=== PATIENT | female | born 1980 | race Caucasian/White ===

== ENCOUNTER 2016-06-27 03:03 | Emergency (ER) | payer OTHER ==
[2016-06-27] MEDS ORDERED: methylPREDNISolone NA SUCC 125 MG/2 ML VIAL IVPB ONE (04:01)
[2016-06-27] MEDS ORDERED: morphine CARPU-JECT 2 MG/1 ML DISP.SYRIN IVPUSH ONE (04:01)
[2016-06-27] MEDS ORDERED: SODIUM CHLORIDE 1,000 ML IV STA (04:01)
[2016-06-27] MEDS ORDERED: METOCLOPRAMIDE HCL INJECTION 10 MG/2 ML VIAL IVPB ONE (04:01)
--- NOTE | 2016-06-27 04:03 | PDOC ---
History of Present Illness - General Chief Complaint: Headache Stated Complaint: SEVERE MIGRAINE Time Seen by Provider: 06/27/16 03:45 History Source: Patient, Family, Computer Service Technician Used Exam Limitations: Language Barrier - History of Present Illness Initial Comments: 06/27/16 04:26 35yo Female patient presents to ED c/o severe headache since 1 am today. Patient denies hx: migraine or headache. She denies n/v/d, fever, neck pain, CP , Abd pain, back pain, diff breathing, rash, or any other complaints at this time. Patient denies . No OTC medications use reported. Denies any other complaints at this time. Associated photophobia. Timing/Duration: reports: 4-6 hours, constant Severity: Yes: severe Associated Symptoms: denies: fever/chills, loss of consciousness, muscle spasms , nausea/vomiting, seizures, slurred speech, tingling in legs/feet, trouble walking, vision changes, weakness Past History - Travel Traveled outside of the country in the last 30 days: No Close contact w/someone who was outside of country & ill: No - Past Medical History Allergies/Adverse Reactions: Allergies Allergy/AdvReac Type Severity Reaction Status Date / Time No Known Allergies Allergy Verified 06/27/16 05:03 Home Medications: Ambulatory Orders Butalb/Acetaminophen/Caffeine [Fioricet 50-300-40 mg Capsule] 1 each PO Q4H PRN #15 capsule 06/27/16 - Surgical History Abdominal Surgery: Yes - Psycho/Social/Smoking Cessation Hx Anxiety: No Suicidal Ideation: No Smoking Status: No Smoking History: Never smoked Number of Cigarettes Smoked Daily: 0 Hx Alcohol Use: No Substance Use Type: None Neuro Specific PMHX - Complaint Specific PMHX Glaucoma: No Herniated Disk: No Laminectomy: No Migraine: No Multiple Sclerosis: No Neuropathy: No TIA: No Review of Systems - Review of Systems Able to Perform ROS?: Yes Is the patient limited Sami proficient: No Constitutional: No: Chills, Fever, Weakness HEENTM: No: Eye Pain, Blurred Vision, Double Vision, Nose Congestion, Throat Pain Respiratory: No: Cough, Shortness of Breath, Stridor, Wheezing Cardiac (ROS): No: Chest Pain, Edema, Lightheadedness, Palpitations, Chest Tightness ABD/GI: No: Constipated, Diarrhea, Nausea, Poor Appetite, Poor Fluid Intake, Vomiting : No: Dysuria, Flank Pain, Hematuria, Pain Musculoskeletal: No: Back Pain, Neck Pain Integumentary: No: Bruising, Erythema, Rash Neurological: Yes: Headache. No: Numbness, Paresthesia, Seizure, Tingling, Tremors, Weakness, Unsteady Gait, Ataxia, Dizziness Psychiatric: No: Stressors All Other Systems: Reviewed and Negative *Physical Exam - Physical Exam General Appearance: Yes: Nourished, Appropriately Dressed, Moderate Distress. No: Apparent Distress HEENT: positive: EOMI, MEENA, Normal ENT Inspection, Normal Voice, Symmetrical, TMs Normal, Pharynx Normal. negative: Rhinorrhea, Sinus Tenderness, TM Bulging , TM Dull, TM Erythema Neck: positive: Trachea midline, Supple. negative: Stridor, Lymphadenopathy (R) , Lymphadenopathy (L) Respiratory/Chest: positive: Lungs Clear, Normal Breath Sounds. negative: Respiratory Distress, Accessory Muscle Use, Labored Respiration, Rapid RR, Rhonchi, Stridor, Wheezing, Hyperresonant Cardiovascular: positive: Regular Rhythm, Regular Rate. negative: Edema, JVD, Murmur Gastrointestinal/Abdominal: positive: Normal Bowel Sounds, Soft. negative: Distended, Guarding, Rebound, Tenderness Lymphatic: negative: Adenopathy Musculoskeletal: positive: Normal Inspection. negative: CVA Tenderness Extremity: positive: Normal Capillary Refill, Normal Inspection, Normal Range of Motion. negative: Pedal Edema, Calf Tenderness, Erythema Integumentary: positive: Normal Color, Dry, Warm. negative: Pale, Cold, Clammy , Rash, Swelling, Bruising Neurologic: positive: opal polisher II-XII NML intact, Fully Oriented, Alert, Normal Mood/ Affect, Normal Response, Motor Strength 5/5. negative: Abnormal Cranial NS ED Treatment Course - LABORATORY CBC & Chemistry Diagram: 06/27/16 04:57 06/27/16 04:57 - RADIOLOGY Radiology Studies Ordered: Category Date Time Status HEAD CT WITHOUT CONTRAST [CT] Stat CT Scan 06/27/16 04:01 Ordered *DC/Admit/Observation/Transfer Diagnosis at time of Disposition: Migraine Qualifiers: Migraine type: without aura Status migrainosus presence: without status migrainosus Intractability: not intractable Qualified Code(s): G43.009 - Migraine without aura, not intractable, without status migrainosus - Discharge Dispostion Disposition: HOME Condition at time of disposition: Improved Admit: No - Prescriptions Prescriptions: Butalb/Acetaminophen/Caffeine [Fioricet 50-300-40 mg Capsule] 1 each PO Q4H PRN #15 capsule PRN Reason: Headache - Referrals Referrals: Sowmya Mccartney MD [Staff Physician] - - Patient Instructions Printed Discharge Instructions: DI for Headache, DI for Migraine Additional Instructions: Siga con el Sowmya Lee en [facility] si los s ntomas persisten. Siga con shah proveedor de atencin primaria la prxima semana para ruchi evaluacin ms detallada. [place] los medicamentos segn lo prescrito. Fioricet para el dolor de garth segn sea necesario. Descanse y tri muchos l quidos. Shah escner de kash fue normal y el trabajo de jennie dentro del rango normal. Si jesus sntomas empeoran o cualquier preocupacin, regrese para ruchi evaluacin adicional. Follow up with Sowmya Lee at [facility] if symptoms persist. Follow up with your primary care provider next week for further evaluation. Take medications as prescribed. Fioricet for headache as needed. Get plenty rest and drink lots of fluids. Your Cat Scan was normal and blood work within normal range. If your symptoms worsen or any concerns, return for further evaluation. Print Language: MEXICAN
--- NOTE | 2016-06-27 04:12 | PDOC ---
[id number]6RtINZKVCFMCJYSVM6SFWBYhTPRKw1pNWPXtIxJEQJTkM RsZQAAeJxztooJKMpPL0 jYbArrPWxuRL2TJJyPgayNwdC5CzENercoFt2eZa7HcjXP6/ KIh6CTS5aPX79SFn8HlgtBSYqRXLswFqBjZsI5RsX6SaF3QpR1DDH5YSZ5K8QKjv2ASGepXn2x0iHcSS WIJCmULMRDu7X3n7MhZETOaHhxjW1Re6cUS7zsEJR7qjSGhCH4YWEMAQTuyeuJmKUADxxSGSGSzJwaj3 uOBCEIRMvN /j4qxb9mFqNwzFmFZtwkqqXYztUwIrZC7QQfOG/lqkpiG719AaLkihwS4F5KCtezK61MlgMWFkrT/ mPLlCo5xerHLVMXshpeLInNXIpWmRo6asAwCykWCT+ I450IlCiotTpFMWJgDgX3RVb9qWhKIeumkTzwVER9vp6WBC/ pMMAJ8bY0zlIDIM4krTHigASO6rcqzKl8RNVjmlpkWKAJLWtt0l/sRXFbnzQcgwcQeRLh8+ Hjsc9msgc1PD81dpBvXoJimYLdcLJ/7slE9cLhnFFz2EoGffIcTE3KUsdi+WeRPxtlfQaqrWR+ yEPktqJnpw21ITvWe2W/64ejMDaULOjlkpJAtJ10Z4sfUrGyb+Zj/ SSiSlyygWoDfvg8h66FVVvzscLZHMMbMFPH+liMRtvchi1kTic9IhEw7+ wVNK2UOfk6SO2SJiM5b8Ja2SnRCBnEQa+t5rdj+0DqUulEf/XaOtuKfgDC9d++VxDZ7cazs+ qYrwx0r6Th+f6jxG8VC7a/0LZroJrPXI25F9qVHE2iz4QOfSqa8iUbDcP574B3bZqcJx2g6lM0sk/ znMVkUHvdzf/YUZTJSYg15E8cqG9URn8eTvYf0gLrXQiD4IsDPZZd3w1ZqIe1UfklZK+ vHU6BMpe9JXwUguqCqFPRVNU7qB9gQhw5Z6ErBTj+ XOYS1HQ2WCwt8K2LdhK2Wt1E7hQSLSNXEG6EcfMdvh== 06/27/16 04:57 Medical Decision Making - Medical Decision Making 06/27/16 04:12 agree with care from [facility] Robert *DC/Admit/Observation/Transfer Diagnosis at time of Disposition: Migraine - Discharge Dispostion Disposition: HOME Condition at time of disposition: Fair - Prescriptions Prescriptions: Butalb/Acetaminophen/Caffeine [Fioricet 50-300-40 mg Capsule] 1 each PO Q4H PRN #15 capsule PRN Reason: Headache - Referrals Referrals: Sowmya Mccartney MD [Staff Physician] - - Patient Instructions Printed Discharge Instructions: DI for Migraine, DI for Headache Additional Instructions: Siga con el Sowmya Lee en [facility] si los s ntomas persisten. Siga con shah proveedor de atencin primaria la prxima semana para ruchi evaluacin ms detallada. [place] los medicamentos segn lo prescrito. Fioricet para el dolor de garth segn sea necesario. Descanse y tri muchos l quidos. Shah escner de kash fue normal y el trabajo de jennie dentro del rango normal. Si jesus sntomas empeoran o cualquier preocupacin, regrese para ruchi evaluacin adicional. Follow up with Sowmya Lee at [facility] if symptoms persist. Follow up with your primary care provider next week for further evaluation. Take medications as prescribed. Fioricet for headache as needed. Get plenty rest and drink lots of fluids. Your Cat Scan was normal and blood work within normal range. If your symptoms worsen or any concerns, return for further evaluation. Print Language: LAO
[2016-06-27 05:03] VITALS: BP 164/78; PULSE 86; TEMP 98.5; BMI 32.3
[2016-06-27] MEDS ORDERED: methylPREDNISolone NA SUCC 125 MG/2 ML VIAL ONE (05:08)
[2016-06-27] MEDS ORDERED: morphine CARPU-JECT 2 MG/1 ML DISP.SYRIN ONE (05:08)
[2016-06-27] MEDS ORDERED: METOCLOPRAMIDE HCL INJECTION 10 MG/2 ML VIAL ONE (05:08)
[2016-06-27 05:09] LABS: EOSINOPHIL 6.8 % (0-4.5); MCH 22.4 pg (25.7-33.7); MCHC 31.6 g/dl (32.0-36.0); MEAN CELL VOLUME 70.7 fl (80-96); MEAN PLT VOLUME 9.2 fl (7.5-11.1); NEUTROPHILS 54.3 % (42.8-82.8); PLATELET COUNT 260 K/MM3 (134-434); RDW 16.1 % (11.6-15.6); WHITE BLOOD COUNT 7.3 K/mm3 (4.0-10.0)
[2016-06-27 05:41] LABS: GLUCOSE,RANDOM 131 mg/dL (74-106)
[2016-06-27 05:42] LABS: ALBUMIN 3.4 g/dl (3.4-5.0); ALK PHOS 128 U/L (45-117); ANION GAP 7 (8-16); BILIRUBIN,TOTAL 0.6 mg/dL (0.2-1.0); CALCIUM 8.6 mg/dL (8.5-10.1); CO2 28 mmol/L (21-32); CREATININE 0.8 mg/dL (0.55-1.02); SGOT/AST 12 U/L (15-37); SGPT/ALT 19 U/L (12-78); TOT PROT 7.5 g/dl (6.4-8.2)
[2016-06-27 05:52] LABS: URINE APPEARANCE CLEAR; URINE BILIRUBIN NEGATIVE (NEGATIVE); URINE COLOR STRAW; URINE GLUCOSE (UA) NEGATIVE (NEGATIVE); URINE KETONE NEGATIVE (NEGATIVE); URINE LEUK ESTERASE NEGATIVE (NEGATIVE); URINE NITRITE NEGATIVE (NEGATIVE); URINE PROTEIN NEGATIVE (NEGATIVE); URINE UROBILINOGEN NEGATIVE E.U./dl (0.2-1.0)
[2016-06-27 05:58] LABS: URINE BLOOD 2+ (NEGATIVE)
[2016-06-27 05:59] LABS: URINE MUCUS RARE; URINE RBC <1 /hpf (0-3); URINE WBC 1 /hpf (3-5)
[2016-06-27] MEDS ORDERED: MAGNESIUM SULF 50% (8.12 MEQ/2 ML-1 GM VIAL) IVPB ONE (06:06)
[2016-06-27] MEDS ORDERED: MAGNESIUM SULF 50% (8.12 MEQ/2 ML-1 GM VIAL) ONE (06:28)
== END 2016-06-27 07:19 | disposition home or self-care (01) ==
LOC: JER 03:03
PROC: 3E0333Z Introduction of Anti-inflammatory into Peripheral Vein, Percutaneous Approach (ICD-10-PCS; principal; 2016-06-27)
PROC: 3E033GC Introduction of Other Therapeutic Substance into Peripheral Vein, Percutaneous Approach (ICD-10-PCS; 2016-06-27)
DX: G43.009 Migraine without aura, not intractable, without status migrainosus (principal)
CPT/HCPCS: 36415; 70450-TC; 80053; 81003; 81015; 84703; 85025; 85651; 96374; 96375; 99283-25

== ENCOUNTER 2017-06-02 15:11 | Emergency (ER) | payer OTHER ==
--- NOTE | 2017-06-02 15:19 | PDOC ---
Rapid Medical Evaluation Time Seen by Provider: 06/02/17 15:17 Medical Evaluation: Allergies Allergy/AdvReac Type Severity Reaction Status Date / Time No Known Allergies Allergy Verified 06/02/17 15:17 06/02/17 15:18 Pt presents to the ED: dysuria and hematuria, no abd pain Pt on brief exam: vss Pt ordered for: ua, ucx, hcg Pt to proceed to the Emergency Dept Discharge Disposition - Diagnosis Dysuria - Referrals - Patient Instructions - Post Discharge Activity
[2017-06-02 15:20] VITALS: BP 137/76; PULSE 110; TEMP 98.6; BMI 32.3
[2017-06-02 16:02] LABS: URINE APPEARANCE CLOUDY; URINE BILIRUBIN NEGATIVE (NEGATIVE); URINE BLOOD 2+ (NEGATIVE); URINE COLOR YELLOW; URINE GLUCOSE (UA) NEGATIVE (NEGATIVE); URINE KETONE NEGATIVE (NEGATIVE); URINE NITRITE NEGATIVE (NEGATIVE); URINE PROTEIN NEGATIVE (NEGATIVE); URINE UROBILINOGEN NEGATIVE mg/dL (0.2-1.0)
[2017-06-02 16:04] LABS: URINE LEUK ESTERASE 3+ (NEGATIVE)
[2017-06-02 16:06] LABS: URINE MUCUS FEW; URINE RBC 54 /hpf (0-3); URINE WBC 183 /hpf (3-5)
--- NOTE | 2017-06-02 16:06 | PDOC ---
History of Present Illness - General History Source: Patient Exam Limitations: No Limitations - History of Present Illness Initial Comments: 06/02/17 16:20 The patient is a 36 year old [place] Korean-speaking female, with no significant past medical history, who presents to the emergency department with, dysuria, hematuria, and urinary frequency for two days. The patient reports when she urinating droplets. She denies recent fevers, chills, headache or dizziness. She denies recent nausea, vomit, diarrhea or constipation. She denies recent chest pain or shortness of breath. Allergies: NKA Past surgical history: None reported. Social history: Nonsmoker. Denies EtOH use and recreational drug use. <Yessy Van - Last Filed: 06/02/17 16:20> <Saloni Patel - Last Filed: 06/02/17 18:47> - General Chief Complaint: Urinary Problem Stated Complaint: URINARY PROBLEM Time Seen by Provider: 06/02/17 15:17 Past History <Yessy Van - Last Filed: 06/02/17 16:20> - Past Medical History COPD: No Diabetes: Yes (Pre diabetes) - Surgical History Abdominal Surgery: Yes - Immunization History Immunization Up to Date: No - Suicide/Smoking/Psychosocial Hx Smoking Status: No Smoking History: Never smoked Have you smoked in the past 12 months: No Number of Cigarettes Smoked Daily: 0 Information on smoking cessation initiated: No Hx Alcohol Use: No Drug/Substance Use Hx: No Substance Use Type: None <Saloni Patel - Last Filed: 06/02/17 18:47> - Past Medical History Allergies/Adverse Reactions: Allergies Allergy/AdvReac Type Severity Reaction Status Date / Time No Known Allergies Allergy Verified 06/02/17 15:17 Home Medications: Ambulatory Orders Butalb/Acetaminophen/Caffeine [Fioricet 50-300-40 mg Capsule] 1 each PO Q4H PRN #15 capsule 06/27/16 Cephalexin Monohydrate [Keflex -] 500 mg PO BID #14 capsule 06/02/17 Ibuprofen 800 mg PO TID #30 tablet 06/02/17 Review of Systems - Review of Systems Able to Perform ROS?: Yes Comments:: 06/02/17 16:21 CONSTITUTIONAL: Absent: fever, no chills, no fatigue EYES: Absent: visual changes ENT: Absent: ear pain, no sore throat CARDIOVASCULAR: Absent: chest pain, no palpitations RESPIRATORY: Absent: cough, no SOB GI: Absent: abdominal pain, no nausea, no vomiting, no constipation, no diarrhea GENITOURINARY: Present: +dysuria +frequency +hematuria MUSKULOSKELETAL: Absent: back pain, no arthralgia, no myalgia SKIN: Absent: rash NEURO: Absent: headache All Other Systems: Reviewed and Negative <Yessy aVn - Last Filed: 06/02/17 16:20> *Physical Exam - Vital Signs Last Vital Signs Temp Pulse Resp BP Pulse Ox 98.6 F 110 H 18 137/76 100 06/02/17 15:19 06/02/17 15:19 06/02/17 15:19 06/02/17 15:19 06/02/17 15:19 - Physical Exam Comments: 06/02/17 16:21 GENERAL: Well-appearing, well-nourished. No apparent distress. HEENT: Normocephalic, atraumatic. PERRL, EOM intact. CARDIOVASCULAR: Normal S1, S2. Regular rate and rhythm. PULMONARY: Clear to auscultation bilaterally. ABDOMEN: Soft, non-distended, non-tender. GENITOURINARY: No CVA tenderness. EXTREMITIES: Normal ROM in all four extremities. No gross deformities. SKIN: Warm, dry. No rash NEUROLOGICAL: No focal neurological deficits. <Yessy Van - Last Filed: 06/02/17 16:20> - Vital Signs Last Vital Signs Temp Pulse Resp BP Pulse Ox 98.6 F 110 H 18 137/76 100 06/02/17 15:19 06/02/17 15:19 06/02/17 15:19 06/02/17 15:19 06/02/17 15:19 <Saloni Patel - Last Filed: 06/02/17 18:47> ED Treatment Course - ADDITIONAL ORDERS Additional order review: Laboratory Results 06/02/17 15:55 Urine Color Yellow Urine Appearance Cloudy Urine pH 5.0 Ur Specific White 1.026 Urine Protein Negative Urine Glucose (UA) Negative Urine Ketones Negative Urine Blood 2+ H Urine Nitrite Negative Urine Bilirubin Negative Urine Urobilinogen Negative Urine WBC (Auto) 183 Urine RBC (Auto) 54 Ur Epithelial Cells Few Urine Mucus Few <Yessy Van - Last Filed: 06/02/17 16:20> - ADDITIONAL ORDERS Additional order review: Laboratory Results 06/02/17 15:55 Urine Color Yellow Urine Appearance Cloudy Urine pH 5.0 Ur Specific White 1.026 Urine Protein Negative Urine Glucose (UA) Negative Urine Ketones Negative Urine Blood 2+ H Urine Nitrite Negative Urine Bilirubin Negative Urine Urobilinogen Negative <Saloni Patel - Last Filed: 06/02/17 18:47> Medical Decision Making - Medical Decision Making 06/02/17 16:12 Pt. evaluated in E prior to arrival in the ED. UA, UC and U preg ordered. Pt. presents with two days of dysuira, hematuria and frequency. This has never happened to her before. LMP 05/17/17. VSS, Afebrile. UA with 183 WBC's. Most likely UTI. Waiting for urine for abx selection. 06/02/17 18:47 negative. Will give Keflex at this time and d/c home. Pt. understands all discharge instructions and is comfortable with dc planning. <Saloni Patel - Last Filed: 06/02/17 18:47> *DC/Admit/Observation/Transfer - Attestations Scribe Attestion: 06/02/17 16:22 Documentation prepared by Yessy Van, acting as medical asst for Alexandro Coronado MD. <Yessy Van - Last Filed: 06/02/17 16:20> - Discharge Dispostion Admit: No <Saloni Patel - Last Filed: 06/02/17 18:47> Diagnosis at time of Disposition: Dysuria UTI (urinary tract infection) Qualifiers: Urinary tract infection type: acute cystitis Hematuria presence: with hematuria Qualified Code(s): N30.01 - Acute cystitis with hematuria - Discharge Dispostion Disposition: HOME Condition at time of disposition: Stable - Prescriptions Prescriptions: Cephalexin Monohydrate [Keflex -] 500 mg PO BID #14 capsule Ibuprofen 800 mg PO TID #30 tablet - Referrals Referrals: Charli Lopez MD [Staff Physician] - - Patient Instructions Printed Discharge Instructions: DI for Urinary Tract Infection (UTI) Additional Instructions: You have a urinary tract infection. Please take the antibiotics as prescribed. Your prescribed Keflex 500 mg. Please take this twice a day for one week. Please drink plenty of fluids. May take Motrin as needed for pain. You may take 800 mg 3 times a day not to exceed 3000 mg. Please follow-up with her primary care doctor in 1 week. Return to the emergency department if you have back pain, fevers, chills, no relief of your symptoms, or any changes in her symptoms. Usted tiene ruchi infeccin del tracto urinario. Por favor tome los antibiticos segn lo prescrito. Shah Keflex 500 mg prescrito. Por favor, tome esto dos veces al da nikhil ruchi semana. Por favor tri muchos lquidos. Puede angelina Motrin segn sea necesario para el dolor. Puede angelina 800 mg 3 veces al da sin exceder 3000 mg. Por favor evan un seguimiento con shah mdico de atencin primaria en 1 semana. Regrese al departamento de emergencias si tiene dolor de espalda, fiebre, escalofros, sin alivio de jesus sntomas o cualquier cambio en jesus sntomas. Print Language: IRANIAN
[2017-06-02 18:23] LABS: URINE LEUK ESTERASE 2+ (NEGATIVE)
== END 2017-06-02 17:18 | disposition home or self-care (01) ==
LOC: JERFT 15:11
DX: N30.01 Acute cystitis with hematuria (principal); R73.03 Prediabetes
CPT/HCPCS: 81003; 81015; 84703; 87086; 99281-25

== ENCOUNTER 2017-07-18 10:41 | Emergency (ER) | payer OTHER ==
[2017-07-18 10:47] VITALS: BP 116/71; PULSE 95; TEMP 97.9; BMI 32.3
[2017-07-18 11:22] LABS: URINE APPEARANCE SLCLOUDY; URINE BILIRUBIN NEGATIVE (NEGATIVE); URINE BLOOD 3+ (NEGATIVE); URINE COLOR YELLOW; URINE GLUCOSE (UA) NEGATIVE (NEGATIVE); URINE KETONE NEGATIVE (NEGATIVE); URINE LEUK ESTERASE TRACE (NEGATIVE); URINE NITRITE NEGATIVE (NEGATIVE); URINE PROTEIN NEGATIVE (NEGATIVE); URINE UROBILINOGEN NEGATIVE mg/dL (0.2-1.0)
[2017-07-18 11:23] LABS: HCG,QUALITATIVE URINE NEGATIVE
--- NOTE | 2017-07-18 11:28 | PDOC ---
History of Present Illness - General Chief Complaint: Urinary Problem Stated Complaint: PAIN Time Seen by Provider: 07/18/17 11:18 History Source: Patient Exam Limitations: No Limitations - History of Present Illness Initial Comments: 07/18/17 11:40 Patient is a 37-year-old female who presents to the emergency department with 2 days of urinary symptoms. She states that every time she pees it hurts and she feels burning. Denies hematuria, fevers, chills, nausea, vomiting, diarrhea, back pain. Was here one month ago for similar symptoms Past History - Past Medical History Allergies/Adverse Reactions: Allergies Allergy/AdvReac Type Severity Reaction Status Date / Time No Known Allergies Allergy Verified 07/18/17 10:47 Home Medications: Ambulatory Orders Butalb/Acetaminophen/Caffeine [Fioricet 50-300-40 mg Capsule] 1 each PO Q4H PRN #15 capsule 06/27/16 Cephalexin Monohydrate [Keflex -] 500 mg PO BID #14 capsule 06/02/17 Ibuprofen 800 mg PO TID #30 tablet 06/02/17 Cephalexin Monohydrate [Keflex -] 500 mg PO BID #14 capsule 07/18/17 Phenazopyridine HCl [Pyridium -] 100 mg PO TID #21 tablet 07/18/17 COPD: No Diabetes: Yes (Pre diabetes) - Surgical History Abdominal Surgery: Yes - Immunization History Immunization Up to Date: No - Suicide/Smoking/Psychosocial Hx Smoking Status: No Smoking History: Never smoked Have you smoked in the past 12 months: No Number of Cigarettes Smoked Daily: 0 Hx Alcohol Use: No Drug/Substance Use Hx: No Substance Use Type: None Review of Systems - Review of Systems Able to Perform ROS?: Yes Comments:: 07/18/17 11:55 CONSTITUTIONAL: Absent: fever, chills, diaphoresis, generalized weakness, malaise, loss of appetite GASTROINTESTINAL: Absent: abdominal pain, abdominal distension, nausea, vomiting, diarrhea, constipation, melena, hematochezia GENITOURINARY: Present: dysuria, frequency, urgency Absent: hesitancy, hematuria, flank pain, genital pain SKIN: Absent: rash, itching, pallor NEUROLOGIC: Absent: headache, focal weakness or paresthesias, dizziness, unsteady gait, seizure, mental status changes, bladder or bowel incontinence Is the patient limited Botswanan proficient: No *Physical Exam - Vital Signs Last Vital Signs Temp Pulse Resp BP Pulse Ox 97.9 F 95 H 18 116/71 99 07/18/17 10:43 07/18/17 10:43 07/18/17 10:43 07/18/17 10:43 07/18/17 10:43 - Physical Exam Comments: 07/18/17 11:54 GENERAL: The patient is awake, alert, and fully oriented, in no acute distress. HEAD: Normal with no signs of trauma. EYES: Pupils equal, round and reactive to light, extraocular movements intact, sclera anicteric, conjunctiva clear. ABDOMEN: Soft, flat, non-tender without rebound, guarding or tenderness. No CVA tenderness. EXTREMITIES: Normal range of motion, no edema. NEUROLOGICAL: Normal speech, normal gait. PSYCH: Normal mood, normal affect. SKIN: Warm, Dry, normal turgor, no rashes or lesions noted. ED Treatment Course - ADDITIONAL ORDERS Additional order review: Laboratory Results 07/18/17 11:07 Urine Color Yellow Urine Appearance Slcloudy Urine pH 5.0 Ur Specific [place] 1.021 Urine Protein Negative Urine Glucose (UA) Negative Urine Ketones Negative Urine Blood 3+ H Urine Nitrite Negative Urine Bilirubin Negative Urine Urobilinogen Negative Ur Leukocyte Esterase Trace Urine HCG, Qual Negative Medical Decision Making - Medical Decision Making 07/18/17 11:53 The UA is positive for trace leukocytes and blood cells. 3+ blood however patient is on her menstrual cycle. No CVA tenderness on exam patient is afebrile vital signs stable most likely UTI. We'll discharge home with Keflex and Pyridium at this time. Return precautions given. Patient understands all discharge instructions and all questions are answered at this time. *DC/Admit/Observation/Transfer Diagnosis at time of Disposition: UTI (urinary tract infection) Qualifiers: Urinary tract infection type: acute cystitis Hematuria presence: with hematuria Qualified Code(s): N30.01 - Acute cystitis with hematuria - Discharge Dispostion Disposition: HOME Condition at time of disposition: Stable Admit: No - Prescriptions Prescriptions: Cephalexin Monohydrate [Keflex -] 500 mg PO BID #14 capsule Phenazopyridine HCl [Pyridium -] 100 mg PO TID #21 tablet - Referrals Referrals: Ethan Pickett MD [Primary Care Provider] - - Patient Instructions Printed Discharge Instructions: DI for Urinary Tract Infection (UTI) Additional Instructions: You have a urinary tract infection. Please take the antibiotics as prescribed. Your also prescribed Pyridium. Please take this medication with food 3 times a day to help with the burning sensation. Please drink plenty of fluids including cranberry juice. Please follow up with her primary care doctor this week. Return to the emergency department if you develop fevers, back pain, nausea, vomiting or have any changes in your symptoms. Usted tiene ruchi infeccin del tracto urinario. Por favor tome los antibiticos segn lo prescrito. Shah Pyridium prescrito tambin. Por favor tome janeth medicamento con comida 3 veces al da para ayudar con la sensacin de ardor. Por favor, tome muchos lquidos, incluido el jugo de arndano. Por favor, evan un seguimiento con shah mdico de atencin primaria esta semana. Regrese al departamento de emergencia si tiene fiebre, dolor de espalda, nuseas , vmitos o algn cambio en jesus sntomas. Print Language: TRISTANIAN - Post Discharge Activity
[2017-07-18 11:36] LABS: EPI CELLS RARE /HPF (FEW); URINE HYALINE CAST 9 /lpf; URINE MUCUS MANY
== END 2017-07-18 12:06 | disposition home or self-care (01) ==
LOC: JERFT 10:41
DX: N30.01 Acute cystitis with hematuria (principal); R73.03 Prediabetes
CPT/HCPCS: 81003; 81015; 84703; 87086; 99281-25

== ENCOUNTER 2018-04-21 09:37 | Emergency (ER) | payer OTHER ==
[2018-04-21 09:48] VITALS: BP 127/82; PULSE 91; TEMP 98.4; BMI 30.7
--- NOTE | 2018-04-21 11:15 | PDOC ---
History of Present Illness - General Chief Complaint: Urinary Problem Stated Complaint: URINARY PROBLEM Time Seen by Provider: 04/21/18 09:59 History Source: Patient Exam Limitations: Language Barrier ([employer] used German [id number]) - History of Present Illness Initial Comments: 04/21/18 12:04 Pt is a 37 y/o F who presents to the ED for 3 days of dysuria, frequency, and hematuria. She states that when she pees, only a little comes out and it hurts. When she wipes she sees blood. Pt denies fevers, chills, back pain, nausea, vomiting and diarrhea. Past History - Travel Traveled outside of the country in the last 30 days: No Close contact w/someone who was outside of country & ill: No - Past Medical History Allergies/Adverse Reactions: Allergies Allergy/AdvReac Type Severity Reaction Status Date / Time No Known Allergies Allergy Verified 04/21/18 09:43 Home Medications: Ambulatory Orders Cephalexin Monohydrate [Keflex -] 500 mg PO BID #14 capsule 04/21/18 Phenazopyridine HCl [Pyridium -] 100 mg PO TID #9 tablet 04/21/18 COPD: No Diabetes: Yes (Pre diabetes) - Surgical History Abdominal Surgery: Yes - Immunization History Immunization Up to Date: No - Suicide/Smoking/Psychosocial Hx Smoking Status: No Smoking History: Never smoked Have you smoked in the past 12 months: No Number of Cigarettes Smoked Daily: 0 Information on smoking cessation initiated: No Hx Alcohol Use: No Drug/Substance Use Hx: No Substance Use Type: None Review of Systems - Review of Systems Able to Perform ROS?: Yes Comments:: 04/21/18 11:14 CONSTITUTIONAL: Absent: fever, chills, diaphoresis, generalized weakness, malaise, loss of appetite GASTROINTESTINAL: Absent: abdominal pain, abdominal distension, nausea, vomiting, diarrhea, constipation, melena, hematochezia GENITOURINARY: Present: dysuria, frequency, urgency, hesitancy, hematuria Absent: flank pain, genital pain MUSCULOSKELETAL: Absent: myalgia, arthralgia, joint swelling SKIN: Absent: rash, itching, pallor NEUROLOGIC: Absent: headache, focal weakness or paresthesias, dizziness, unsteady gait, seizure, mental status changes, bladder or bowel incontinence PSYCHIATRIC: Absent: anxiety, depression, suicidal or homicidal ideation, hallucinations. Is the patient limited Ghanaian proficient: Yes *Physical Exam - Vital Signs Last Vital Signs Temp Pulse Resp BP Pulse Ox 98.4 F 91 H 18 127/82 99 04/21/18 09:43 04/21/18 09:43 04/21/18 09:43 04/21/18 09:43 04/21/18 09:43 - Physical Exam Comments: 04/21/18 11:14 GENERAL: Well developed, well nourished. Awake and alert. No acute distress. NECK: Supple. Full ROM. No JVD. Carotid pulses 2+ and symmetric, without bruits. No thyromegaly. No lymphadenopathy. ABDOMINAL: Discomfort to the suprapubic region. Soft. Non-tender. Non-distended. No rebound or guarding. No organomegaly. Normoactive bowel sounds. MUSCULOSKELETAL Normal range of motion at all joints. No bony deformities or tenderness. No CVA tenderness. EXTREMITIES: No cyanosis. No clubbing. No edema. No calf tenderness. SKIN: Warm and dry. Normal capillary refill. No rashes. No jaundice. NEUROLOGICAL: Alert, awake, appropriate. Cranial nerves 2-12 intact. No deficits to light touch and temperature in face, upper extremities and lower extremities. No motor deficits in the in face, upper extremities and lower extremities. Normoreflexic in the upper and lower extremities. Normal speech. Toes are down- going bilaterally. Gait is normal without ataxia. PSYCHIATRIC: Cooperative. Good eye contact. Appropriate mood and affect. Medical Decision Making - Medical Decision Making 04/21/18 12:24 Pt is a 37 y/o F who presents to the ED for dysuria for 3 days -On exam suprapubic discomfort. No CVA tenderness, pt afebrile -UA with WBC's >1000. Will treat for UTI at this time -DC home with PCP follow up -Return precautions given. Discussed results with patient. Pt understands all dc instructions and all questions were answered. *DC/Admit/Observation/Transfer Diagnosis at time of Disposition: UTI (urinary tract infection) Qualifiers: Urinary tract infection type: acute cystitis Hematuria presence: with hematuria Qualified Code(s): N30.01 - Acute cystitis with hematuria - Discharge Dispostion Disposition: HOME Condition at time of disposition: Stable Decision to Admit order: No - Referrals Referrals: Charli Lopez MD [Staff Physician] - - Patient Instructions Printed Discharge Instructions: DI for Urinary Tract Infection (UTI) Additional Instructions: You have a urinary tract infection Please take the Keflex twice a day for one week Drink plenty of fluids Take the pyridium with food three times a day for three days to help with the pain. This medicine may turn your urine orange. You may take Tylenol or Motrin as needed for pain. Follow the dosing instruction on the bottle Follow up with your primary care provider in 24-72 hours. Return to the ED for worsening pain, fever, upper back pain, nausea, vomiting or if you have any changes in your symptoms Tiene ruchi infeccin del tracto urinario. Por favor, tome el Keflex dos veces al da nikhil ruchi semana Beber mucho lquido [place] el piridium con comida moe veces al da nikhil moe scales para aliviar el dolor. Dora medicamento puede convertir caldwell orina en naranja. Puede angelina Tylenol o Motrin segn sea necesario para el dolor. Seguir las instrucciones de dosificacin en la botella. Rakel un seguimiento con caldwell proveedor de atencin primaria en 24-72 horas. Regrese a la lauri de emergencias para empeorar el dolor, la fiebre, el dolor en la parte superior de la espalda, las nuseas, los vmitos o si tiene algn cambio en jesus sntomas. Print Language: KOREAN - Post Discharge Activity Forms/Work/School Notes: Back to Work
[2018-04-21 11:34] LABS: HCG,QUALITATIVE URINE Negative
[2018-04-21 12:19] LABS: URINE APPEARANCE CLOUDY; URINE BILIRUBIN NEGATIVE (<2.0 mg/dL); URINE COLOR YELLOW; URINE GLUCOSE (UA) NEGATIVE (NEGATIVE); URINE KETONE NEGATIVE (NEGATIVE); URINE LEUK ESTERASE 3+ (NEGATIVE); URINE NITRITE NEGATIVE (NEGATIVE); URINE PROTEIN 1+ (NEGATIVE); URINE UROBILINOGEN NEGATIVE mg/dL (0.2-1.0)
[2018-04-21 12:21] LABS: EPI CELLS RARE /HPF (FEW); URINE MUCUS RARE
== END 2018-04-21 12:37 | disposition home or self-care (01) ==
LOC: JERFT 09:37
DX: N30.01 Acute cystitis with hematuria (principal); R73.03 Prediabetes
CPT/HCPCS: 81003; 81015; 84703; 87086; 87186; 99281-25

== ENCOUNTER 2019-07-13 09:15 | Emergency (ER) | payer OTHER ==
[2019-07-13 09:27] VITALS: BMI 76.8
[2019-07-13] MEDS ORDERED: SODIUM CHLORIDE 1,000 ML IV STA (09:47)
--- NOTE | 2019-07-13 09:54 | PDOC ---
Documentation entered by Scooby Nesbitt SCRIBE, acting as scribe for Osmnai Brewster MD. Osmani Brewster MD: This documentation has been prepared by the Laz linn Xhesika, SCRIBE, under my direction and personally reviewed by me in its entirety. I confirm that the documentation accurately reflects all work, treatment, procedures, and medical decision making performed by me. History of Present Illness - General Chief Complaint: Lightheaded Stated Complaint: COLD SYMPTOMS Time Seen by Provider: 07/13/19 09:37 History Source: Patient Exam Limitations: No Limitations - History of Present Illness Initial Comments: 07/13/19 09:48 The patient is a 39 year old male with a significant PMH of diabetes who presents to the emergency department for lightheadedness and palpitations since this morning. Pt states that she awoke with a pounding sensation in her chest. The patient denies any headache or room spinning dizziness. Denies chest pain, shortness of breath, fever, chills, cough, nausea, vomiting, diarrhea. Denies leg swelling, no recent travel/immobilization. Allergies: NKDA Past History - Past Medical History Allergies/Adverse Reactions: Allergies Allergy/AdvReac Type Severity Reaction Status Date / Time No Known Allergies Allergy Verified 04/21/18 09:43 Home Medications: Ambulatory Orders Metformin HCl [Glucophage] 1,000 mg PO BID 07/13/19 COPD: No Diabetes: Yes (Pre diabetes) - Surgical History Abdominal Surgery: Yes - Immunization History Immunization Up to Date: No - Psycho Social/Smoking Cessation Hx Smoking Status: No Smoking History: Never smoked Have you smoked in the past 12 months: No Number of Cigarettes Smoked Daily: 0 Hx Alcohol Use: No Drug/Substance Use Hx: No Substance Use Type: None Review of Systems - Review of Systems Able to Perform ROS?: Yes Comments:: 07/13/19 09:48 GENERAL/CONSTITUTIONAL: No fever or chills. No weakness. HEAD, EYES, EARS, NOSE AND THROAT: No change in vision. No ear pain or discharge. No sore throat. CARDIOVASCULAR: +palpitations. No chest pain, no shortness of breath, no loss of consciousness RESPIRATORY: No cough, wheezing, or hemoptysis. GASTROINTESTINAL: No nausea, vomiting, diarrhea or constipation. GENITOURINARY: No dysuria, frequency, or change in urination. MUSCULOSKELETAL: No joint or muscle swelling or pain. No neck or back pain. SKIN: No rash NEUROLOGIC: +lightheadedness. No vertigo, no change in strength/sensation. ENDOCRINE: No increased thirst. No abnormal weight change. HEMATOLOGIC/LYMPHATIC: No anemia, easy bleeding, or history of blood clots. ALLERGIC/IMMUNOLOGIC: No hives or skin allergy. *Physical Exam - Vital Signs Last Vital Signs Temp Pulse Resp BP Pulse Ox 98.2 F 99 H 18 139/91 99 07/13/19 09:20 07/13/19 09:20 07/13/19 09:20 07/13/19 09:20 07/13/19 09:20 - Physical Exam 07/13/19 09:49 GENERAL: Awake, alert, and fully oriented, in no acute distress. HEAD: No signs of trauma EYES: PERRLA, EOMI, sclera anicteric, conjunctiva clear ENT: Auricles normal inspection, hearing grossly normal, nares patent, oropharynx clear without exudates. Moist mucosa NECK: Nontender, no stepoffs, Normal ROM, supple, no lymphadenopathy, JVD, or masses LUNGS: Breath sounds equal, clear to auscultation bilaterally. No wheezes, and no crackles HEART: Regular rate and rhythm, normal S1 and S2, no murmurs, rubs or gallops ABDOMEN: Soft, nontender, normoactive bowel sounds. No guarding, no rebound. No masses EXTREMITIES: Normal range of motion, no edema. No clubbing or cyanosis. No cords, erythema, or tenderness NEUROLOGICAL: Cranial nerves II through XII intact. 5/5 strength and sensation in all extremities, Normal speech, normal gait, normal cerebellar function SKIN: Warm, Dry, normal turgor, no rashes or lesions note Heart Score/ECG Review - ECG Impressions Comment:: 07/13/19 09:53 NSR, no ELIZABETH/STDs, no TWIs, axis wnl, intervals wnl, rate 90 ED Treatment Course - LABORATORY CBC & Chemistry Diagram: 07/13/19 09:45 07/13/19 09:45 - RADIOLOGY Radiology Studies Ordered: Category Date Time Status CHEST PA & LAT [RAD] Stat Radiology 07/13/19 09:47 Ordered Medical Decision Making - Medical Decision Making 07/13/19 09:53 39 F with palpitations and lightheadedness. EKG with no evidence of ischemia or arrhythmia. Will r/o ACS with troponin, though pt denies any chest pain. Consider dehydration, possible viral illness or other infectious process. - Labs, trop - CXR, UA - IVF bolus 07/13/19 11:04 Labs wnl CXR unremarkable Pt reassessed - now feels completely better with fluids Pt is well appearing, with normal vitals. Clinically stable for DC at this time. I discussed the physical exam findings, ancillary test results and final diagnoses with the patient. I answered all of the patient's questions. The patient was satisfied with the care received and felt comfortable with the discharge plan and treatment plan. The patient agrees to follow up with the primary care physician within 24-72 hours. Discharge - Discharge Information Problems reviewed: Yes Clinical Impression/Diagnosis: Lightheaded, Palpitations - Follow up/Referral Referrals: Shiraz Preston MD [Primary Care Provider] - Wyatt Knox MD [Staff Physician] - - Patient Discharge Instructions Patient Printed Discharge Instructions: DI for Palpitations Additional Instructions: Your bloodwork, EKG, and X ray were unremarkable. However, this does not rule out all serious medical problems. You should follow up with a electrical integrator for further evaluation of your palpitations. Call the number provided to make an appointment within 1 week. If you experience worsening palpitations, lightheadedness, chest pain, shortness of breath, or any other concerning symptoms, return to the ER immediately. Shah anlisis de jennie, EKG y rena X no fueron notables. Sin embargo, esto no descarta todos los problemas mdicos graves. Debe realizar un seguimiento con un cardilogo para ruchi evaluacin adicional de jesus palpitaciones. Llame al nmero proporcionado para hacer ruchi manohar dentro de 1 semana. Si experimenta un empeoramiento de las palpitaciones, aturdimiento, dolor en el pecho, dificultad para respirar o cualquier otro sntoma preocupante, regrese a la lauri de emergencias de inmediato. - Post Discharge Activity
[2019-07-13 10:22] LABS: BASO % 0.5 % (0-2.0); EOS % 6.2 % (0-4.5); HEMATOCRIT 35.4 % (32.4-45.2); HEMOGLOBIN 11.2 GM/dL (10.7-15.3); LYMPH % 28.8 % (8-40); MCH 23.1 pg (25.7-33.7); MCHC 31.7 g/dl (32.0-36.0); MEAN CELL VOLUME 72.9 fl (80-96); MEAN PLT VOLUME 9.2 fl (7.5-11.1); MONO % 5.8 % (3.8-10.2); NEUT % 58.7 % (42.8-82.8); PLATELET COUNT 241 K/MM3 (134-434); RBC 4.86 M/mm3 (3.60-5.2); RDW 20.7 % (11.6-15.6)
[2019-07-13 10:59] LABS: ALBUMIN 3.2 g/dl (3.4-5.0); ALK PHOS 129 U/L (45-117); ANION GAP 4 MMOL/L (8-16); BILIRUBIN,TOTAL 0.4 mg/dL (0.2-1); BLOOD UREA NITROGEN 8.9 mg/dL (7-18); CALCIUM 8.5 mg/dL (8.5-10.1); CHLORIDE 105 mmol/L (98-107); CO2 27 mmol/L (21-32); CREATININE 0.7 mg/dL (0.55-1.3); GLUCOSE,RANDOM 161 mg/dL (74-106); POTASSIUM 4.4 mmol/L (3.5-5.1); SGOT/AST 16 U/L (15-37); SGPT/ALT 22 U/L (13-61); SODIUM 136 mmol/L (136-145); TOT PROT 7.5 g/dl (6.4-8.2)
[2019-07-13 11:01] LABS: URINE APPEARANCE CLEAR; URINE BILIRUBIN NEGATIVE (NEGATIVE); URINE COLOR YELLOW; URINE GLUCOSE (UA) NEGATIVE (NEGATIVE); URINE KETONE NEGATIVE (NEGATIVE); URINE LEUK ESTERASE NEGATIVE (NEGATIVE); URINE NITRITE NEGATIVE (NEGATIVE); URINE PROTEIN NEGATIVE (NEGATIVE); URINE UROBILINOGEN 0.2 mg/dL (0.2-1.0)
[2019-07-13 11:03] LABS: ANISOCYTOSIS 1+
[2019-07-13 12:20] VITALS: BP 111/72; PULSE 89; TEMP 98
--- NOTE | 2019-07-13 13:54 | EKG ---
Test Reason : Blood Pressure : / mmHG Vent. Rate : 090 BPM Atrial Rate : 090 BPM P-R Int : 150 ms QRS Dur : 084 ms QT Int : 340 ms P-R-T Axes : 031 042 041 degrees QTc Int : 415 ms NORMAL SINUS RHYTHM NORMAL ECG NO PREVIOUS ECGS AVAILABLE Confirmed by Ambrose Bunn ([id number]) on 07/13/2019 1:54:12 PM Referred By: Confirmed By:Ambrose Bunn
== END 2019-07-13 11:25 | disposition home or self-care (01) ==
LOC: JER 09:15
PROC: 3E0337Z Introduction of Electrolytic and Water Balance Substance into Peripheral Vein, Percutaneous Approach (ICD-10-PCS; principal; 2019-07-13)
DX: R42 Dizziness and giddiness (principal); R00.2 Palpitations; E11.9 Type 2 diabetes mellitus without complications
CPT/HCPCS: 36415; 71046-TC-FY; 80053; 81003; 82550; 84484; 84703; 85025; 93005; 93010; 99284-25; J7030

== ENCOUNTER 2020-01-16 09:37 | Emergency (ER) | payer OTHER ==
[2020-01-16 09:46] VITALS: TEMP 98.4; BMI 33.9
[2020-01-16] MEDS ORDERED: SODIUM CHLORIDE 1,000 ML IV STA (10:59)
--- NOTE | 2020-01-16 11:34 | PDOC ---
History of Present Illness - General Chief Complaint: Bleeding from Anus Stated Complaint: RECTAL BLEEDING Time Seen by Provider: 01/16/20 10:08 History Source: Patient Exam Limitations: No Limitations - History of Present Illness Initial Comments: Betty is a 39 yo Botswanan-speaking F w a hx of NIDDM and hemorrhoids who presents to the [facility] er with 1 day of rectal bleeding. She looked down at the toilet and noticed some red discoloration of the toilet bowl water. She came into the ER bc she was concerned about the blood from her rectum. She states that she has a history of hemorrhoids. Patient also endorses lower abdominal pain mainly on the left but also in the suprapubic and RLQ regions. Patient rates the pain as 3/1 and the symptoms or moderate and come and go. - Last colonoscopy on July 2018 PCP: Dr. Preston GI: Patient doesn't know name but has seen Dr. Rick in past per EMR PSH: , Tubal ligation Allerigies: NKA, NKDA Social Hx: Denies smoking, drinking or other substance abuse Past History - Medical History Allergies/Adverse Reactions: Allergies Allergy/AdvReac Type Severity Reaction Status Date / Time No Known Allergies Allergy Verified 04/21/18 09:43 Home Medications: Ambulatory Orders Metformin HCl [Glucophage] 1,000 mg PO BID 07/13/19 Amoxicillin/Potassium Clav [Augmentin 875-125 Tablet] 1 each PO TID 5 Days #15 tablet 01/16/20 COPD: No Diabetes: Yes HTN: Yes - Surgical History Abdominal Surgery: Yes - Reproductive History Is Patient Now?: No - Immunization History Immunization Up to Date: No - Psycho-Social/Smoking History Smoking Status: No Smoking History: Never smoked Have you smoked in the past 12 months: No Number of Cigarettes Smoked Daily: 0 - Substance Abuse Hx (Audit-C & DAST Scrn) How often the patient has a drink containing alcohol: Never Score: In Men: 4 or > Positive; In Women: 3 or > Positive: 0 Screen Result (Pos requires Nsg. Audit-10AR): Negative In the last yr the pt used illegal drug/Rx for NonMed reason: No Score: Yes response is considered Positive: 0 Screen Result (Positive result requires Nsg. DAST-10): Negative Review of Systems - Review of Systems Able to Perform ROS?: Yes Comments:: CONSTITUTIONAL: Absent: fever, no chills, no fatigue EYES: Absent: visual changes ENT: Absent: ear pain, no sore throat CARDIOVASCULAR: Absent: chest pain, no palpitations RESPIRATORY: Absent: cough, no SOB GI: Present: Abdominal pain, constipation Absent: no nausea, no vomiting, no diarrhea GENITOURINARY: Absent: dysuria, no frequency, no hematuria MUSKULOSKELETAL: Absent: back pain, no arthralgia, no myalgia SKIN: Absent: rash NEURO: Absent: headache *Physical Exam - Vital Signs Last Vital Signs Temp Pulse Resp BP Pulse Ox 98.4 F 90 20 131/54 L 100 01/16/20 09:41 01/16/20 09:41 01/16/20 09:41 01/16/20 09:41 01/16/20 09:41 - Physical Exam GENERAL: Well-appearing, well-nourished. No apparent distress. HEENT: Normocephalic, atraumatic. PERRL, EOM intact. CARDIOVASCULAR: Normal S1, S2. Regular rate and rhythm. PULMONARY: No evidence of respiratory distress. Lungs clear to auscultation bilaterally. No wheezing, rales or rhonchi. ABDOMEN: There is mild suprapubic TTP as well as right and left lower quadrant ttp. Overall, abdomen is soft, normal bowel sounds and not peritoneal without re bound, guarding or rigidity. RECTAL EXAM: Soft brown stool, no blood in vault, two small external hemorrhoids at the 9 and 11 position not thrombosed, no internal hemorroids. EXTREMITIES: Normal ROM in all four extremities. No gross deformities. SKIN: Warm, dry. No rash NEUROLOGICAL: No focal neurological deficits. ED Treatment Course - LABORATORY CBC & Chemistry Diagram: 01/16/20 11:15 01/16/20 11:15 - ADDITIONAL ORDERS Additional order review: Laboratory Results 01/16/20 10:24 Stool Occult Blood Negative - RADIOLOGY Radiology Studies Ordered: Category Date Time Status ABDOMEN & PELVIS CT WITH CONTR [CT] Stat CT Scan 01/16/20 11:30 Ordered Medical Decision Making - Medical Decision Making Betty is a 39 yo Botswanan-speaking F w a hx of NIDDM and hemorrhoids who presents to the [facility] er with 1 day of rectal bleeding. She looked down at the toilet and noticed some red discoloration of the toilet bowl water. She came into the ER bc she was concerned about the blood from her rectum. She states that she has a history of hemorrhoids. Patient also endorses lower abdominal pain mainly on the left but also in the suprapubic and RLQ regions. Patient rates the pain as 3/1 and the symptoms or moderate and come and go. - Last colonoscopy on July 2018 Vital Signs Temp Pulse Resp BP Pulse Ox 98.4 F 90 20 131/54 L 100 01/16/20 09:41 01/16/20 09:41 01/16/20 09:41 01/16/20 09:41 01/16/20 09:41 DDx IBNLT: Hemorrhoidal bleeding, diverticulitis, electrolyte/metabolic disturbance, anemia, UTI/Pylo Plan: Labs, Urine, CTAP, analegsia, likely DC as patient is very well appearing. MDM: Patient very well appearing but does have abdominal pain, rectal bleeding per history. Will obtain a CT to r/o diverticulitis. If labs and imaging negative she can be discharged home with appropriate FU and return precautions. Labs: Unremarkable and WNL - Stool for occult negative Urine: not consistent with UTI given clinical history CTAP: Mild colitis will treat with 5 day course of augmentin Re-assessment: Patient feeling better in ED and requesting to be discharged The patient appears clinically sober, has no evidence of clinical intoxication, is A&O x4, has no sustained nystagmus, and appears to be capable and have capacity to make reasonable decisions. The patient states they are currently in the emergency department, knows who the president is, states the correct time, correct day, and correct month. The patient is ambulatory in ER and has walked around the nursing station multiple times with a straight and steady gait, and is not ataxic. Tolerating PO well, ate a sandwich and drank juice. Denies having any SI or HI. Patient states will not be driving home. I discussed the physical exam findings, ancillary test results and final diagnoses with the patient. I answered all of the patient's questions. The patient was satisfied with the care received and felt comfortable with the discharge plan and treatment plan. The patient will call their primary care physician within 24 hours to arrange follow-up and will return to the Emergency Department with any new, persistent or worsening symptoms. Disposition: Home with Gi follow up and Abx - Strict return precautions discussed Please note, this clinical encounter is taking place during a federal and state health care emergency attributable to the novel Nielson Virus pandemic. The [employer] Worker of the Department of Health and Human Services has declared, pursuant to the Public Health Service Act 319F-3 (42 U.S.C. 247d-6d), that a covered persons activities related to medical countermeasures against COVID-19 will be immune from liability under Federal and State law. Discharge - Discharge Information Problems reviewed: Yes Clinical Impression/Diagnosis: Colitis Condition: Improved Disposition: HOME - Admission No - Additional Discharge Information Prescriptions: Amoxicillin/Potassium Clav [Augmentin 875-125 Tablet] 1 each PO TID 5 Days #15 tablet - Follow up/Referral Referrals: Shiraz Preston MD [Primary Care Provider] - Tono Mondragon DO [Staff Physician] - Arvin Rick MD [Staff Physician] - Denise Monet MD [Staff Physician] - - Patient Discharge Instructions Patient Printed Discharge Instructions: DI for Colitis Additional Instructions: You came into the ER with abdominal pain. We did a cat scan which showed you have a mild inflammation and infection in your colon called colitis. Please read the attached handout for further explanation. We are sending an antibiotic to your pharmacy - augmentin - for you to take 3 times a day for the next 5 days. Make sure to go and vegetable picker this medication from the pharmacy. You must follow up with the stomach doctor - cushion maker hand - in the next 3 to 5 days. You must return to the Emergency Department with any new complaints, if your symptoms persist and do not improve or if you develop any other new or worsening concerns. You can take over the counter Tylenol or Advil as needed for pain. Take as directed on the package insert. Do not exceed the recommended dosage. As discussed, please call to follow up with your Primary Care physician in 1-2 days to discuss what happened to you in the emergency room, and make sure you are being looked after and taken care of. Your emergency room visit is not complete without this follow up appointment. Please read the attached handouts for further information about your ER visit and what you should do moving forward. Thank you for coming to the [place] ER. We hope you feel better soon! Print Language: HUNGARIAN - Post Discharge Activity
[2020-01-16 11:41] LABS: BASO % 0.6 % (0-2.0); EOS % 5.3 % (0-4.5); HEMATOCRIT 41.3 % (32.4-45.2); HEMOGLOBIN 12.9 GM/dL (10.7-15.3); LYMPH % 25.9 % (8-40); MCH 23.7 pg (25.7-33.7); MCHC 31.2 g/dl (32.0-36.0); MEAN CELL VOLUME 76.2 fl (80-96); MEAN PLT VOLUME 9.7 fl (7.5-11.1); MONO % 5.5 % (3.8-10.2); NEUT % 62.7 % (42.8-82.8); PLATELET COUNT 272 K/MM3 (134-434); RBC 5.42 M/mm3 (3.60-5.2); RDW 15.5 % (11.6-15.6); WHITE BLOOD COUNT 7.9 K/mm3 (4.0-10.0)
[2020-01-16 12:01] LABS: INR 1.05 (0.83-1.09); PROTHROMBIN TIME (PATIENT) 12.4 SEC (9.7-13.0)
--- NOTE | 2020-01-16 12:01 | PDOC ---
Documentation entered by Aury Woodward SCRIBE, acting as scribe for Frantz Chang MD. Frantz Chang MD: This documentation has been prepared by the Crissy linn Brenda, SCRIBE, under my direction and personally reviewed by me in its entirety. I confirm that the documentation accurately reflects all work, treatment, procedures, and medical decision making performed by me. Attending Attestation - Resident Resident Name: Leonidas Saravia - ED Attending Attestation I have performed the following: I have examined & evaluated the patient, The case was reviewed & discussed with the resident, I agree w/resident's findings & plan, Exceptions are as noted - HPI HPI: 01/16/20 10:25 The patient is a 39 year old female with a significant PMH of Pre-DM who presents to the emergency department with 3 episodes of bright red blood per rectum. Associated bowel movements. Associated with mild lower abdominal discomfort. No fever no nausea no vomiting stool is firm hard and brown. No history of similar. Does not occur in the absence of bowel movements. The patient denies chest pain, shortness of breath, headache and dizziness. Denies fever, chills, nausea, vomiting, diarrhea and constipation. Denies dysuria, frequency, urgency and hematuria. Allergies: NKA Past surgical history: Social history: No reported hx of tobacco use, alcohol use or illicit drug use. PCP: Shiraz Preston 01/16/20 12:07 - Physicial Exam PE: 01/16/20 13:46 Vitals: Triage Vital signs reviewed General Appearance: No acute distress, well nourished well developed, Head: Atraumatic, Cardiac: Regular rate and rhythym, no murmurs, no rubs, no gallops, Lungs: Clear to auscultation bilateral, good air movement bilaterally, Abdomen: Soft, non distended, normal bowel sounds, non tender to palpation Extremities: Full range of motion to all extremities, no cyanosis, clubbing, or edema Skin: Warm and dry, no rashes or lesions, no rash, no petechiae Psych: Normal mood, normal affect - Medical Decision Making 01/16/20 15:15 Small amount of bright red blood per rectum CBC within normal limits slight abdominal discomfort CT with evidence suggestive of colitis We will treat with 5-day course of Augmentin followed by GI follow-up Findings, need for follow-up with strict return instructions discussed with patient. Discharge - Discharge Information Problems reviewed: Yes Clinical Impression/Diagnosis: Colitis Disposition: HOME - Additional Discharge Information Prescriptions: Amoxicillin/Potassium Clav [Augmentin 875-125 Tablet] 1 each PO TID 5 Days #15 tablet - Follow up/Referral Referrals: Shiraz Preston MD [Primary Care Provider] - - Patient Discharge Instructions - Post Discharge Activity
[2020-01-16 12:03] LABS: ACTIVATED PTT 28.6 SECONDS (25.2-36.5)
[2020-01-16 12:32] LABS: ALBUMIN 3.4 g/dl (3.4-5.0); BILIRUBIN,TOTAL 0.5 mg/dL (0.2-1); BLOOD UREA NITROGEN 11.5 mg/dL (7-18); CREATININE 0.7 mg/dL (0.55-1.3); POTASSIUM 4.5 mmol/L (3.5-5.1); TOT PROT 7.8 g/dl (6.4-8.2)
[2020-01-16] MEDS ORDERED: ACETAMINOPHEN 1000 MG/100 ML VIAL (NON FORMULARY) IVPB ONE (13:01)
[2020-01-16 13:53] LABS: EPI CELLS 9 /uL (0-25.1); HYALINE CASTS 0 /uL (0-3.1); URINE APPEARANCE CLEAR; URINE BACTERIA 346 /uL (0-1359); URINE BILIRUBIN NEGATIVE (NEGATIVE); URINE COLOR YELLOW; URINE GLUCOSE (UA) NEGATIVE (NEGATIVE); URINE KETONE NEGATIVE (NEGATIVE); URINE LEUK ESTERASE TRACE (NEGATIVE); URINE NITRITE NEGATIVE (NEGATIVE); URINE PROTEIN NEGATIVE (NEGATIVE); URINE RBC 6 /uL (0-23.9); URINE UROBILINOGEN 0.2 mg/dL (0.2-1.0); URINE WBC 24 /uL (0-25.8)
[2020-01-16 15:42] VITALS: BP 132/92; PULSE 76
== END 2020-01-16 15:43 | disposition home or self-care (01) ==
LOC: JER 09:37
PROC: 3E0333Z Introduction of Anti-inflammatory into Peripheral Vein, Percutaneous Approach (ICD-10-PCS; principal; 2020-01-16)
PROC: 3E0337Z Introduction of Electrolytic and Water Balance Substance into Peripheral Vein, Percutaneous Approach (ICD-10-PCS; 2020-01-16)
DX: K52.9 Noninfective gastroenteritis and colitis, unspecified (principal)
CPT/HCPCS: 36415; 74177-TC; 80053; 81003; 82272; 85025; 85610; 85730; 86850; 86900; 86901; 87086; 99284-25; Q9967

== ENCOUNTER 2020-09-28 00:29 | Emergency (ER) | payer OTHER ==
[2020-09-28 00:56] VITALS: TEMP 98.9; BMI 24.2
[2020-09-28 01:37] LABS: EOS % 7.4 % (0-4.5); HEMATOCRIT 32.7 % (32.4-45.2); HEMOGLOBIN 10.3 GM/dL (10.7-15.3); LYMPH % 34.6 % (8-40); MCH 23.4 pg (25.7-33.7); MCHC 31.6 g/dl (32.0-36.0); MEAN CELL VOLUME 74.1 fl (80-96); MEAN PLT VOLUME 9.6 fl (7.5-11.1); MONO % 6.2 % (3.8-10.2); NEUT % 50.8 % (42.8-82.8); PLATELET COUNT 264 K/MM3 (134-434); RBC 4.41 M/mm3 (3.60-5.2); RDW 17.1 % (11.6-15.6); WHITE BLOOD COUNT 6.4 K/mm3 (4.0-10.0)
[2020-09-28 01:46] LABS: INR 1.08 (0.83-1.09); PROTHROMBIN TIME (PATIENT) 13.2 SEC (9.7-13.0)
[2020-09-28 01:48] LABS: ACTIVATED PTT 30.5 SECONDS (25.2-36.5)
[2020-09-28 02:00] LABS: CHLORIDE 108 mmol/L (98-107); SODIUM 139 mmol/L (136-145)
[2020-09-28 02:02] LABS: ALBUMIN 3.2 g/dl (3.4-5.0); ANION GAP 4 MMOL/L (8-16); BLOOD UREA NITROGEN 16.7 mg/dL (7-18); CALCIUM 9.4 mg/dL (8.5-10.1); CO2 27 mmol/L (21-32)
[2020-09-28 02:03] LABS: GLUCOSE,RANDOM 107 mg/dL (74-106)
[2020-09-28 02:05] LABS: CREATININE 0.6 mg/dL (0.55-1.3); SGOT/AST 18 U/L (15-37); SGPT/ALT 26 U/L (13-61)
[2020-09-28 02:07] LABS: BILIRUBIN,TOTAL 0.3 mg/dL (0.2-1); TOT PROT 7.3 g/dl (6.4-8.2)
[2020-09-28 02:08] LABS: ALK PHOS 110 U/L (45-117)
[2020-09-28 06:27] VITALS: BP 106/63; PULSE 86
== END 2020-09-28 06:43 | disposition home or self-care (01) ==
LOC: JER 00:29
DX: R07.9 Chest pain, unspecified (principal)
CPT/HCPCS: 36415; 71045-TC-FY; 71275-TC; 80053; 84484; 85025; 85379; 85610; 85730; 93005; 93010; 99285-25; C9803; U0003; U0005

== ENCOUNTER 2023-07-17 04:17 | Emergency (ER) | payer OTHER ==
[2023-07-17 04:31] VITALS: BP 114/78; PULSE 75; RESP 20; TEMP 98.3; BMI 25.4
[2023-07-17] MEDS ORDERED: BUPIVACAINE HCL/PF 0.5% (5MG/ML) 10 ML VIAL ONE (04:40)
[2023-07-17] MEDS ORDERED: LIDOCAINE VISCOUS 2% ORAL/TOP 15 ML UNIT-DOSE CUP ONE (04:41)
[2023-07-17] MEDS: BUPIVACAINE HCL/PF 0.5% (5 MG/ML) 30 ML VIAL IJ ONE (04:43)
[2023-07-17] MEDS: LIDOCAINE VISCOUS 2% ORAL/TOP 100 ML BOTTLE MM ONE (04:56)
== END 2023-07-17 05:21 | disposition home or self-care (01) ==
LOC: JER 04:17
PROC: 3E0X3BZ Introduction of Anesthetic Agent into Cranial Nerves, Percutaneous Approach (ICD-10-PCS; principal; 2023-07-17)
DX: K08.89 Other specified disorders of teeth and supporting structures (principal)
CPT/HCPCS: 99283-25